=== PATIENT | female | born 1955 | race Caucasian/White ===

== ENCOUNTER → 2016-08-26 | Outpatient (CLI) | payer BC | LOC: COL.RAD 13:13 | DX: M70.61 Trochanteric bursitis, right hip (principal); S76.001A Unspecified injury of muscle, fascia and tendon of right hip, initial encounter; S71.001A Unspecified open wound, right hip, initial encounter; M24.151 Other articular cartilage disorders, right hip; Y93.9 Activity, unspecified ==

== ENCOUNTER → 2019-03-02 | Outpatient (CLI) | payer BC | LOC: COL.RAD 03-01 10:00 | DX: C91.10 Chronic lymphocytic leukemia of B-cell type not having achieved remission (principal); R59.0 Localized enlarged lymph nodes; Z90.89 Acquired absence of other organs; Z90.49 Acquired absence of other specified parts of digestive tract; M47.814 Spondylosis without myelopathy or radiculopathy, thoracic region | CPT/HCPCS: Q9967 ==

== ENCOUNTER → 2019-11-22 | Outpatient (CLI) | payer BC | LOC: COL.RAD 08:00 | DX: C91.10 Chronic lymphocytic leukemia of B-cell type not having achieved remission (principal); R59.0 Localized enlarged lymph nodes; R91.8 Other nonspecific abnormal finding of lung field | CPT/HCPCS: Q9967 ==

== ENCOUNTER 2021-02-19 07:08 | Day surgery (SDC) | payer BC ==
[~2021-02-19] VITALS: Ht 172.7 cm; Wt 106.0 kg
[2021-02-19] VITALS (8 sets, daily range): BP systolic 112–140; BP diastolic 59–78; PULSE 71–87; TEMP 97.8–98.7
[2021-02-19] MEDS ORDERED: LEVOXYL0.15 MG PO (08:09)
[2021-02-19] MEDS ORDERED: LEVOXYL0.137 MG PO (08:10)
[2021-02-19] MEDS ORDERED: ASPIRIN E.C. 8181 MG PO (08:11)
[2021-02-19] MEDS ORDERED: PROBIOTIC BLEN1 EACH PO (08:11)
--- NOTE | 2021-02-19 09:33 | NUR ---
Initial visit; Patient and her thanked Pearl Diver for offering comfort and prayer prior to Valdez's "Procedure."
--- NOTE | 2021-02-19 09:44 | NUR ---
up to bathroom with assistance and voided qs and then back to bed, is very sleepy after valium
--- NOTE | 2021-02-19 10:20 | NUR ---
to radiology per WC
--- NOTE | 2021-02-19 11:08 | NUR ---
to OR per cart
[2021-02-19] MEDS ORDERED: NORCO 325 MG-51 TAB PO (12:45)
--- NOTE | 2021-02-19 13:15 | NUR ---
returned from PACU per cart to bay #2, awake but drowsy, IV infusing to right hand,
--- NOTE | 2021-02-19 13:45 | NUR ---
sleeping between checks, while sleeping O2 sats to 89% but up to 91-92% when awake and taking deep breaths, continues with some nausea, provided water so when she is ready to take it is available
--- NOTE | 2021-02-19 14:00 | NUR ---
continues to sleep between checks, she is awakens easily and then goes back to sleep quickly, heart rate strong and regular, lungs CTA, bowel sounds present,
--- NOTE | 2021-02-19 14:30 | NUR ---
O2 sats on room air 87-88%, O2 on at 2L/NC
--- NOTE | 2021-02-19 14:45 | NUR ---
Patient sitting high mitchell in bed. Alert and oriented. Water and crackers provided and patient is tolerating well.
--- NOTE | 2021-02-19 15:00 | NUR ---
Discontinued IV with no complications. Patient up to restroom, able to void without difficulty. Reviewed discharge instructions, patient and verbalized understanding. Instructed to dress and open door when ready for discharge.
--- NOTE | 2021-02-19 15:30 | NUR ---
Transported debra via wheel chair to personal vehicle to be driven home by .
== END 2021-02-19 15:30 | disposition home or self-care (01) ==
LOC: SDCO 07:08
DX: C50.212 Malignant neoplasm of upper-inner quadrant of left female breast (principal); E03.9 Hypothyroidism, unspecified; Z85.850 Personal history of malignant neoplasm of thyroid; Z79.899 Other long term (current) drug therapy; Z79.890 Hormone replacement therapy; Z90.89 Acquired absence of other organs; Z79.82 Long term (current) use of aspirin; Z90.49 Acquired absence of other specified parts of digestive tract; Z80.42 Family history of malignant neoplasm of prostate; Z80.0 Family history of malignant neoplasm of digestive organs; Z80.3 Family history of malignant neoplasm of breast; Z80.1 Family history of malignant neoplasm of trachea, bronchus and lung
CPT/HCPCS: A4648; A9541; J1100; J1200; J2250; J2405; J2704; J3010; J7120

== ENCOUNTER 2021-02-26 12:08 | Day surgery (SDC) | payer BC ==
[~2021-02-26] VITALS: Ht 172.7 cm; Wt 103.8 kg
[~2021-02-26 12:08] MED LIST: ASPIRIN E.C. 8181 MG PO; LEVOXYL0.137 MG PO; LEVOXYL0.15 MG PO; NORCO 325 MG-51 TAB PO; PROBIOTIC BLEN1 EACH PO
[2021-02-26 13:45] VITALS: BP 127/65; PULSE 79; TEMP 98.1
[2021-02-26 15:06] VITALS: BP 116/66; PULSE 81; TEMP 97.3
--- NOTE | 2021-02-26 15:06 | NUR ---
Patient returned to bay 1 via cart. Sleeping, arouses to name. Postop vital signs started. at bedside.
[2021-02-26 15:21] VITALS: BP 121/52; PULSE 72
[2021-02-26 15:36] VITALS: BP 124/68; PULSE 72
--- NOTE | 2021-02-26 15:36 | NUR ---
Patient sitting high fowlers, alert and oriented. Vitals stable. Tolerating food and drink well. Reports mild pain, does not want pain medication. Recommended wearing bra, ice, OTC pain medication and rest to manage pain. 1410 - Discontinued IV with no complications. Reviewed discharge instruction, education material and f/u 1635 - Transfered patient via wheelchair to personal vehiclr to be driven home by .
--- NOTE | 2021-02-26 16:25 | NUR ---
Patient semi fowlers, alert and orient. Reports mild pain, no request for medication. Cranberry juice and crackers provided. at bedside.
== END 2021-02-26 16:35 | disposition home or self-care (01) ==
LOC: SDCO 12:08
DX: C50.212 Malignant neoplasm of upper-inner quadrant of left female breast (principal); E03.9 Hypothyroidism, unspecified; C91.10 Chronic lymphocytic leukemia of B-cell type not having achieved remission; F41.9 Anxiety disorder, unspecified; F43.10 Post-traumatic stress disorder, unspecified; Z79.82 Long term (current) use of aspirin; Z79.890 Hormone replacement therapy; Z79.899 Other long term (current) drug therapy; Z85.850 Personal history of malignant neoplasm of thyroid; Z90.89 Acquired absence of other organs; Z90.49 Acquired absence of other specified parts of digestive tract; Z80.0 Family history of malignant neoplasm of digestive organs; Z80.42 Family history of malignant neoplasm of prostate; Z80.3 Family history of malignant neoplasm of breast; Z80.1 Family history of malignant neoplasm of trachea, bronchus and lung
CPT/HCPCS: J0690; J1100; J2250; J2405; J2704; J3010; J7120

== ENCOUNTER 2021-03-26 08:46 | Inpatient (IN) | payer MEDICARE ==
[~2021-03-26] VITALS: Ht 172.8 cm; Wt 107.1 kg
[2021-04-28] MEDS ORDERED: ASPIRIN 81M81 MG/TA2 PO (09:27)
[2021-04-28] MEDS ORDERED: CVS SPECTRAVIT1 EA15 PO (09:27)
[2021-04-28] MEDS ORDERED: VITAMIN C500 MG PO (09:28)
[2021-04-28] MEDS ORDERED: TYLENOL PM EXTR1 TA1 PO (09:28)
[2021-04-28] MEDS ORDERED: GAS RELIEF180 MG PO (09:29)
[2021-04-28] MEDS ORDERED: B-121000 MCG PO (09:29)
[2021-04-28] MEDS ORDERED: THE MEDICINE S200 M2 PO (09:29)
[2021-04-28 10:02] VITALS: BP 122/76; PULSE 76; TEMP 97.7
[2021-04-28 17:00] VITALS: BP 131/68; PULSE 90; TEMP 99
--- NOTE | 2021-04-28 17:00 | NUR ---
PT ARRIVED FROM PACU. PT IS SLEEPY BUT OPENS EYS TO VOICE. PT IS ORIENTED TIMES 3. PT INSTRUCTED DINING SERVICE WORKER LIGHT. PT ONLY TOLERATING ICE. WILL CONTINUE TO MONITOR.
[2021-04-28 17:15] VITALS: BP 118/57; PULSE 83; TEMP 99
--- NOTE | 2021-04-28 19:45 | NUR ---
PT. sitting up in bed at this time. Pt. is A&OX3, assessment complete. INT to rt. forearm patent. Bilateral chest incisions CDI. BOYD drains X4 noted, with bloody drainage. Pt. reports pain at a 4 on pain scale, giving scheduled pain medications. Pt. ambulated to the bathroom and back with standby assist. Pt. tolerated well. P. denies further needs, call light within reach.
[2021-04-28 20:20] VITALS: BP 111/70; PULSE 86; TEMP 97.6
[2021-04-29 00:05] VITALS: BP 106/60; PULSE 79
--- NOTE | 2021-04-29 06:45 | NUR ---
Due to multiple BOYD drains BOYD A is documented under hemovac #1, BOYD B is documented under Hemovac #2, BOYD C is documented as BOYD#1, and BOYD D is documened as BOYD#2.
[2021-04-29 06:53] VITALS: BP 120/56; PULSE 60; TEMP 97.8
--- NOTE | 2021-04-29 07:30 | NUR ---
Shift assessment performed. INT to right forearm with no redness or swelling. BOYD drains x4 intact noted with minimal bloody drainage. Bilateral incisions across breasts with well approximated edges with no redness or drainage. 2.5 cm by 2.5 cm ecchymosis on top of right breast incision. Reports pain at a 4 on pain scale aching across top of chest. Pt ambulated to the bathroom and back with stand by assist. Pt tolerated well.
--- NOTE | 2021-04-29 09:36 | NUR ---
Initial visit; Patient and her thanked Sustainability Coach for looking in on her and offering prayer for 'negative margins,' and healing from the surgical procedure. Sustainability Coach wished Valdez well, offered prayer as well as encouragement and God's blessings.
[2021-04-29 10:45] VITALS: BP 112/56; PULSE 66; TEMP 98.3
--- NOTE | 2021-04-29 15:33 | NUR ---
call circuit worker met with patient's Suleiman ([phone]) due to patient sleeping. Suleiman reports that they live in their home in [place], [place]. Patient is fully independent with her activities of daily living and does not utilize any DME to assist with mobility and has no oxygen needs. PCP is and utilizes [facility] for perscriptions with no cost difficulty. Suleiman states that they do have a DPOA-HC established and that they have a copy of it at home. Discharge plan: Home
[2021-04-29 16:00] VITALS: BP 116/51; PULSE 75; TEMP 98.1
[2021-04-29 21:43] VITALS: BP 105/50; PULSE 58; TEMP 98.1
--- NOTE | 2021-04-29 22:00 | NUR ---
Pt. sitting up in bed. Pt. is A&OX3, assessment complete. INT to rt. forearm patent. Incisions to bilateral chest well approximated. BOYD drains x4 noted. Pt. reports pain at a 4 pain scale. Pt. denies further needs.
[2021-04-30] VITALS (7 sets, daily range): BP systolic 110–151; BP diastolic 49–82; PULSE 36–71; TEMP 97.6–98.7
--- NOTE | 2021-04-30 07:15 | NUR ---
Shift assessment completed. INT intact with no signs of redness or drainage. Selvin le drains x4 intact with minimal bloody drainage. Bilateral incisions across breasts with no signs of redness or drainage. Pt complains of pulling pain at selvin le drain A with movement. Apical heart rate of 38 bpm. Primary nurse notified.
--- NOTE | 2021-04-30 10:25 | NUR ---
PT HR LOW 40'S DR. WERNER NOTIFIED DURING ROUNDS ORDERS RECIEVED TO [facility] EKG
--- NOTE | 2021-04-30 10:26 | NUR ---
Follow-up visit; Patient having a difficult day, Pneumatic Riveter attempted to comfort and encourage patient and also said a blessing which seemed to help. Pneumatic Riveter will follow up while patient is here.
[2021-04-30 11:24] LABS: HEMATOCRIT 44.7 % (37.0-47.0); HEMOGLOBIN 13.9 g/dl (12.5-16.0); MEAN CELL VOLUME 93 fl (80.0-100.0); MEAN CORPUSCULAR HEMOGLOBIN 29 pg (27.0-31.0); MEAN CORPUSCULAR HGB CONC 31 g/dl (33.0-37.0); MEAN PLATELET VOLUME 11.7 fl (7.4-10.4); PLATELET COUNT 226 K/mm3 (130-400); RED BLOOD COUNT 4.81 M/mm3 (4.10-5.30); REDCELL DISTRIBUTION WIDTH-CV 14.6 % (11.5-14.5)
[2021-04-30 11:41] LABS: ALBUMIN 3.6 gm/dL (3.4-4.8); BILIRUBIN,TOTAL 0.8 mg/dL (0.2-1.2); CALCIUM 9.2 mg/dL (8.4-10.2); CREATININE, serum 0.87 mg/dL (0.57-1.11); MAGNESIUM 1.9 mg/dL (1.6-2.6); PHOSPHOROUS 2.3 mg/dL (2.3-4.7); POTASSIUM 3.8 mmol/L (3.5-4.5); TOTAL PROTEIN 6.4 gm/dL (6.2-8.1)
[2021-04-30 12:04] LABS: THYROID STIMULATING HORMONE 2.689 uIU/mL (0.350-4.940)
[2021-05-01 00:18] VITALS: BP 137/76; PULSE 69; TEMP 97.5; TEMP 97.9
[2021-05-01 03:33] VITALS: BP 131/61; BP 131/65; PULSE 79; TEMP 98; TEMP 98.9
[2021-05-01 08:50] VITALS: BP 157/90; PULSE 73; TEMP 97.2
--- NOTE | 2021-05-01 09:12 | NUR ---
PT ASSESSED. NO COMPLAINTS OF PAIN OR DYSPNEA. NO SIGNS OR SYMPTOMS OF DISTRESS. INCISIONS ARE CDI. CALL LIGHT WITHIN REACH
[2021-05-01 12:53] VITALS: BP 161/85; PULSE 68
--- NOTE | 2021-05-01 13:23 | NUR ---
PT DISCHARGED. NO COMPLAINTS OF PAIN OR DSYPNEA. IV REMOVED. ALL QUESTIONS ANSWERED. MEDICATIONS AND FOLLOW UP APPOINTMENTS REVIEWED.
== END 2021-05-01 13:23 | disposition home or self-care (01) | DRG 583 ==
LOC: SURG 04-28 08:54 → INPTSU 04-28 08:54 → SURG 04-28 11:00
PROVIDERS: Surgery Plastic and Reconstructive Surgery; ADMIT Surgery
PROC: 0HBV0ZZ Excision of Bilateral Breast, Open Approach (ICD-10-PCS; principal; 2021-04-28 11:00)
PROC: 0HRV07Z Replacement of Bilateral Breast with Autologous Tissue Substitute, Open Approach (ICD-10-PCS; 2021-04-28 11:00)
DX: C50.212 Malignant neoplasm of upper-inner quadrant of left female breast (principal); E89.0 Postprocedural hypothyroidism; Z90.49 Acquired absence of other specified parts of digestive tract; Z85.6 Personal history of leukemia; R00.1 Bradycardia, unspecified; E78.5 Hyperlipidemia, unspecified; K21.9 Gastro-esophageal reflux disease without esophagitis; E66.3 Overweight; Z79.82 Long term (current) use of aspirin
CPT/HCPCS: J0690; J1100; J1580; J1650; J1885; J2250; J2405; J2704; J2795; J3010; J7120; Q4122

== ENCOUNTER → 2021-06-25 | Outpatient (CLI) | payer MEDICARE, OTHER ==
[~2021-06-25] VITALS: Ht 172.7 cm; Wt 110.0 kg
[~2021-06-25] MED LIST changes: +ARIMIDEX1 MG PO; +ASPIRIN 81M81 MG/TA2 PO; +B-121000 MCG PO; +CVS SPECTRAVIT1 EA15 PO; +GAS RELIEF180 MG PO; +THE MEDICINE S200 M2 PO; +TOPROL XL 25MG25 MG PO; +TYLENOL PM EXTR1 TA1 PO; +VITAMIN C500 MG PO
[2021-06-25 12:14] VITALS: BP 177/112; PULSE 72; TEMP 97.9
[2021-06-25 13:40] VITALS: BP 175/114; PULSE 75
== END ==
LOC: COL.RAD 11:40
DX: C73 Malignant neoplasm of thyroid gland (principal)